=== PATIENT | female | born 1970 | race Caucasian/White ===

== ENCOUNTER 2016-12-11 17:30 | Inpatient (IN) | payer MEDICAID ==
[~2016-12-11] VITALS: Ht 162.6 cm; Wt 80.4 kg
[~2016-12-11 17:30] MED LIST: ARIP30TA PO; ESZO3TAB9 PO; IBUP800T PO; MAGN400T26 PO; OMEP-110 PO; ONDA4TAB7 PO; PROP60TA PO; SERT100T PO; TRAM50TA2 PO; VILA20TA PO
[2016-12-11] MEDS ORDERED: MECLIZINE CHEWABLE 25 MG TAB ONE ×2 (18:54→18:57)
[2016-12-11] MEDS ORDERED: MECLIZINE CHEWABLE 25 MG TAB PO ONE (19:00)
[2016-12-11] MEDS ORDERED: SODIUM CHLORIDE 0.9% 1,000ML IVBOLUS ONE (19:00)
[2016-12-11] MEDS ORDERED: HYDROmorphone 1 MG/ML, 1ML IM ONE (20:30)
[2016-12-11] MEDS ORDERED: HYDROmorphone 1 MG/ML, 1ML ONE (20:31)
[2016-12-11 20:48] LABS: HEMOGLOBIN 12.9 g/dL (11.7-16.4)
[2016-12-11 20:57] LABS: ASPARTATE AMINO TRANSFERASE 23 U/L (15-37); BLOOD UREA NITROGEN 9 mg/dL (7-18)
[2016-12-11 21:06] LABS: DAU SCREEN DISCLAIMER
[2016-12-12] MEDS ORDERED: OMEPRAZOLE 20 MG CAPSULE.DR PO SCH (09:00)
[2016-12-12] MEDS: VILAZODONE HYDROCHLORIDE 20 MG PO SCH (09:00)
[2016-12-12] MEDS ORDERED: POTASSIUM CHLORIDE 20 MEQ TAB.ER.PRT PO ONE (09:30)
[2016-12-12 11:18] LABS: BLOOD UREA NITROGEN 8 mg/dL (7-18)
[2016-12-12 11:23] VITALS: BP 109/72
[2016-12-12] MEDS: ENOXAPARIN 40 MG/0.4 ML SQ SCH (11:27)
[2016-12-12] MEDS ORDERED: MAGNESIUM SULFATE PMX 2GM/50ML 50 ML IV ONE (12:00)
[2016-12-12] MEDS: CEFTRIAXONE PMX 1GM/50ML 50 ML IV SCH (12:42)
[2016-12-12] MEDS: PROPRANOLOL 60 MG TABLET PO SCH ×3 (12:42→20:24)
[2016-12-12 12:54] VITALS: BP 150/98
[2016-12-12] MEDS: POTASSIUM CHLORIDE 20 MEQ TAB.ER.PRT PO SCH ×2 (13:40→20:22)
[2016-12-12] MEDS: HYDROmorphone 1 MG/ML, 1ML IV PRN ×2 (15:06→20:22)
[2016-12-12 19:04] VITALS: BP_SYST 148; BP_SYST 151; BP_DIAS 109; BP_DIAS 99
[2016-12-12] MEDS ORDERED: ZOLPIDEM 10MG TABLET PO SCH ×2 (22:53→22:54)
[2016-12-12] MEDS ORDERED: ZOLPIDEM 5MG TABLET PO SCH (22:55)
[2016-12-12] MEDS: ZOLPIDEM 5MG TABLET PO SCH (23:07)
[2016-12-13 00:29] VITALS: BP 147/95
[2016-12-13] MEDS: HYDROmorphone 1 MG/ML, 1ML IV PRN ×2 (00:58→05:04)
[2016-12-13 04:25] LABS: HEMOGLOBIN 12.7 g/dL (11.7-16.4)
[2016-12-13 04:44] LABS: BLOOD UREA NITROGEN 5 mg/dL (7-18)
[2016-12-13 07:21] VITALS: BP 146/97
[2016-12-13] MEDS: VILAZODONE HYDROCHLORIDE 20 MG PO SCH ×2 (09:00→09:12)
[2016-12-13] MEDS: PROPRANOLOL 60 MG TABLET PO SCH ×3 (09:11→21:39)
[2016-12-13] MEDS: MAGNESIUM OXIDE 400 MG TABLET PO SCH (09:11)
[2016-12-13] MEDS: POTASSIUM CHLORIDE 20 MEQ TAB.ER.PRT PO SCH (09:11)
[2016-12-13] MEDS: CEFTRIAXONE PMX 1GM/50ML 50 ML IV SCH (09:12)
[2016-12-13] MEDS: ENOXAPARIN 40 MG/0.4 ML SQ SCH (09:12)
[2016-12-13] MEDS: DIPHENHYDRAMINE 50 MG/ML, 1ML IVPush PRN ×3 (11:08→21:39)
[2016-12-13] MEDS: METOCLOPRAMIDE 5 MG/ML, 2ML IVPush PRN ×3 (11:08→21:39)
[2016-12-13 14:45] VITALS: BP 119/79
[2016-12-13 18:53] VITALS: BP 144/87
[2016-12-13] MEDS: ZOLPIDEM 5MG TABLET PO SCH (21:43)
[2016-12-14 01:13] VITALS: BP 142/91
[2016-12-14] MEDS: DIPHENHYDRAMINE 50 MG/ML, 1ML IVPush PRN ×3 (05:22→22:04)
[2016-12-14] MEDS: METOCLOPRAMIDE 5 MG/ML, 2ML IVPush PRN ×3 (05:23→22:04)
[2016-12-14 07:41] VITALS: BP 97/60
[2016-12-14 08:37] LABS: HEMOGLOBIN 13.6 g/dL (11.7-16.4)
[2016-12-14 08:42] LABS: BLOOD UREA NITROGEN 5 mg/dL (7-18)
[2016-12-14] MEDS: MAGNESIUM OXIDE 400 MG TABLET PO SCH (09:25)
[2016-12-14] MEDS: PROPRANOLOL 60 MG TABLET PO SCH ×3 (09:25→22:04)
[2016-12-14] MEDS: CEFTRIAXONE PMX 1GM/50ML 50 ML IV SCH (09:26)
[2016-12-14] MEDS: ENOXAPARIN 40 MG/0.4 ML SQ SCH (09:26)
[2016-12-14 13:49] VITALS: BP 125/87
[2016-12-14] MEDS: LACTOBACILLUS CHEW TABLET PO SCH ×2 (16:03→22:03)
[2016-12-14 19:08] VITALS: BP 122/82
[2016-12-14] MEDS: ZOLPIDEM 5MG TABLET PO SCH (22:04)
[2016-12-15 01:20] VITALS: BP 157/97
[2016-12-15] MEDS: METOCLOPRAMIDE 5 MG/ML, 2ML IVPush PRN ×3 (04:02→16:42)
[2016-12-15] MEDS: DIPHENHYDRAMINE 50 MG/ML, 1ML IVPush PRN ×3 (04:02→16:42)
[2016-12-15 05:03] LABS: BLOOD UREA NITROGEN 6 mg/dL (7-18)
[2016-12-15 07:11] VITALS: BP 130/85
[2016-12-15] MEDS: PROPRANOLOL 60 MG TABLET PO SCH ×3 (08:50→19:47)
[2016-12-15] MEDS: LACTOBACILLUS CHEW TABLET PO SCH ×3 (08:50→19:44)
[2016-12-15] MEDS: ENOXAPARIN 40 MG/0.4 ML SQ SCH (08:51)
[2016-12-15] MEDS: MAGNESIUM OXIDE 400 MG TABLET PO SCH (08:51)
[2016-12-15] MEDS: VILAZODONE HYDROCHLORIDE 20 MG PO SCH (09:00)
[2016-12-15] MEDS: CEFTRIAXONE PMX 1GM/50ML 50 ML IV SCH (09:16)
[2016-12-15 12:55] VITALS: BP 108/73
[2016-12-15 19:40] VITALS: BP 138/87
[2016-12-15] MEDS: ZOLPIDEM 5MG TABLET PO SCH (22:30)
[2016-12-15] MEDS: HYDROmorphone 1 MG/ML, 1ML IV PRN (22:30)
[2016-12-16] MEDS: HYDROmorphone 1 MG/ML, 1ML IV PRN (02:28)
[2016-12-16 04:24] VITALS: BP 149/92
[2016-12-16] MEDS: DIPHENHYDRAMINE 50 MG/ML, 1ML IVPush PRN (06:32)
[2016-12-16] MEDS: METOCLOPRAMIDE 5 MG/ML, 2ML IVPush PRN (06:33)
[2016-12-16 07:28] VITALS: BP 136/86
[2016-12-16] MEDS: VILAZODONE HYDROCHLORIDE 20 MG PO SCH (09:00)
[2016-12-16] MEDS: LACTOBACILLUS CHEW TABLET PO SCH (09:37)
[2016-12-16] MEDS: MAGNESIUM OXIDE 400 MG TABLET PO SCH (09:37)
[2016-12-16] MEDS: CEFTRIAXONE PMX 1GM/50ML 50 ML IV SCH (09:37)
[2016-12-16] MEDS: ENOXAPARIN 40 MG/0.4 ML SQ SCH (10:00)
[2016-12-16] MEDS: PROPRANOLOL 60 MG TABLET PO SCH (10:57)
[2016-12-16 14:10] VITALS: BP 122/77
[2016-12-16] MEDS ORDERED: MAGN400T26 PO (14:13)
[2016-12-16] MEDS ORDERED: CEFD300C2 PO (14:13)
[2016-12-16] MEDS ORDERED: ACID1TAB7 PO (14:13)
== END 2016-12-16 17:41 | DRG 690 ==
LOC: ED 18:42 → EDIP 23:17 → ICU 12-12 07:45
PROVIDERS: ADMIT Internal Medicine; ATTEND Internal Medicine
PROC: 0T9B70Z Drainage of Bladder with Drainage Device, Via Natural or Artificial Opening (ICD-10-PCS; principal; 2016-12-11)
DX: N39.0 Urinary tract infection, site not specified (principal); G91.9 Hydrocephalus, unspecified; R44.0 Auditory hallucinations; R27.8 Other lack of coordination; F32.9 Major depressive disorder, single episode, unspecified; H54.8 Legal blindness, as defined in USA; G43.909 Migraine, unspecified, not intractable, without status migrainosus; E87.6 Hypokalemia; G93.89 Other specified disorders of brain; M21.379 Foot drop, unspecified foot; R41.0 Disorientation, unspecified; Z90.49 Acquired absence of other specified parts of digestive tract; Z90.710 Acquired absence of both cervix and uterus; Z98.2 Presence of cerebrospinal fluid drainage device; Z87.891 Personal history of nicotine dependence; Z91.048 Other nonmedicinal substance allergy status; Z79.899 Other long term (current) drug therapy
CPT/HCPCS: 36415; 70450; 71010; 80048; 80053; 80307; 81001; 82962; 83735; 85025; 87086; 93005; 96372; J0696; J1170; J1650; J1200; J2765; J3475; J7030

== ENCOUNTER 2017-01-25 04:27 | Emergency (ER) | payer MEDICAID ==
[~2017-01-25] VITALS: Ht 162.6 cm; Wt 65.0 kg
[~2017-01-25 04:27] MED LIST changes: +ACID1TAB7 PO; +CEFD300C37 PO
[2017-01-25] MEDS ORDERED: MORPHINE SULFATE 4 MG/ML, 1ML IVPush PRN (05:00)
[2017-01-25] MEDS ORDERED: SODIUM CHLORIDE 0.9% 1,000ML IVBOLUS ONE (05:00)
[2017-01-25] MEDS ORDERED: ONDANSETRON 2MG/ML, 2ML IVPush ONE (05:00)
[2017-01-25 05:32] LABS: ASPARTATE AMINO TRANSFERASE 11 U/L (15-37); BLOOD UREA NITROGEN 14 mg/dL (7-18)
[2017-01-25] MEDS ORDERED: ONDANSETRON ODT 4 MG ONE (05:46)
[2017-01-25] MEDS ORDERED: HYDROcodone/APAP 5/325 TABLET ONE (05:46)
[2017-01-25] MEDS ORDERED: HYDROcodone/APAP 5/325 TABLET PO ONE (06:00)
[2017-01-25] MEDS ORDERED: ONDANSETRON ODT 4 MG PO ONE (06:00)
[2017-01-25 06:21] LABS: PATH.CAST-FLAG NOT PRESENT; SPERM-FLAG NOT PRESENT; SRC-FLAG NOT PRESENT; XTAL-FLAG NOT PRESENT; YLC-FLAG NOT PRESENT
[2017-01-25 07:16] VITALS: BP 110/67
== END 2017-01-25 08:24 | disposition home or self-care (01) ==
LOC: ED 04:31
DX: S62.366A Nondisplaced fracture of neck of fifth metacarpal bone, right hand, initial encounter for closed fracture (principal); R55 Syncope and collapse; R19.7 Diarrhea, unspecified; W01.0XXA Fall on same level from slipping, tripping and stumbling without subsequent striking against object, initial encounter; Y93.89 Activity, other specified; Y92.89 Other specified places as the place of occurrence of the external cause; Y99.8 Other external cause status; G43.909 Migraine, unspecified, not intractable, without status migrainosus; Z90.49 Acquired absence of other specified parts of digestive tract; Z90.710 Acquired absence of both cervix and uterus
CPT/HCPCS: 36415; 73130; 80053; 81001; 85025; 87086; 93005; 99285; Q0162

== ENCOUNTER 2017-02-08 14:48 | Emergency (ER) | payer MEDICAID ==
[~2017-02-08] VITALS: Ht 162.6 cm; Wt 65.9 kg
[2017-02-08] MEDS ORDERED: SODIUM CHLORIDE 0.9% 1,000ML IVBOLUS ONE ×2 (15:30→17:00)
[2017-02-08] MEDS ORDERED: SODIUM CHLORIDE FLUSH 10ML SYR IVF ONE ×2 (15:30→17:00)
[2017-02-08] MEDS ORDERED: PLEASE ENTER HEIGHT AND WEIGHT MC SCH (15:30)
[2017-02-08 15:35] LABS: BLOOD UREA NITROGEN 12 mg/dL (7-18)
[2017-02-08 15:50] LABS: IS PT STATUS REG ER OR PRE ER? YES
[2017-02-08 15:52] LABS: DIFF TOTAL CELLS COUNTED 100 CELL DIFF
[2017-02-08 15:56] LABS: VERIFY COUNTS? YES
[2017-02-08] MEDS ORDERED: DIPHENHYDRAMINE 50 MG/ML, 1ML ONE (16:45)
[2017-02-08] MEDS ORDERED: METOCLOPRAMIDE 5 MG/ML, 2ML ONE (16:45)
[2017-02-08] MEDS ORDERED: METOCLOPRAMIDE 5 MG/ML, 2ML IVPush ONE (17:00)
[2017-02-08] MEDS ORDERED: DIPHENHYDRAMINE 50 MG/ML, 1ML IVPush ONE (17:00)
[2017-02-08 17:35] VITALS: BP 133/94
== END 2017-02-08 18:46 | disposition home or self-care (01) ==
LOC: ED 15:53
DX: G43.009 Migraine without aura, not intractable, without status migrainosus (principal); E86.0 Dehydration; R55 Syncope and collapse; H54.8 Legal blindness, as defined in USA; Z87.891 Personal history of nicotine dependence
CPT/HCPCS: 36415; 71010; 80048; 82040; 84484; 85025; 93005; 96361; 96374; 96375; 99285; J1200; J2765; J7030

== ENCOUNTER 2017-03-06 15:23 | Emergency (ER) | payer MEDICAID ==
[~2017-03-06] VITALS: Ht 162.6 cm; Wt 68.0 kg
[2017-03-06] MEDS ORDERED: HYDROcodone/APAP 5/325 TABLET PO PRN (15:30)
[2017-03-06] MEDS ORDERED: HYDROcodone/APAP 5/325 TABLET ONE (15:56)
[2017-03-06 16:19] VITALS: BP 140/98
== END 2017-03-06 17:39 | disposition home or self-care (01) ==
LOC: ED 15:34
DX: S00.03XA Contusion of scalp, initial encounter (principal); S10.93XA Contusion of unspecified part of neck, initial encounter; E83.51 Hypocalcemia; Z90.49 Acquired absence of other specified parts of digestive tract; Z90.710 Acquired absence of both cervix and uterus; F17.200 Nicotine dependence, unspecified, uncomplicated; Y08.89XA Assault by other specified means, initial encounter; Y93.89 Activity, other specified; Y92.009 Unspecified place in unspecified non-institutional (private) residence as the place of occurrence of the external cause; Y99.9 Unspecified external cause status
CPT/HCPCS: 70450; 99284

== ENCOUNTER 2017-04-20 13:14 | Emergency (ER) | payer MEDICAID ==
[~2017-04-20] VITALS: Ht 162.6 cm; Wt 68.0 kg
[~2017-04-20 13:14] MED LIST changes: -ARIP30TA PO; +ARIP30TA4 PO
[2017-04-20] MEDS ORDERED: SODIUM CHLORIDE 0.9% 1,000ML IVBOLUS ONE (14:00)
[2017-04-20] MEDS ORDERED: METOCLOPRAMIDE 5 MG/ML, 2ML IVPush ONE (14:00)
[2017-04-20] MEDS ORDERED: DIPHENHYDRAMINE 50 MG/ML, 1ML IVPush ONE (14:00)
[2017-04-20] MEDS ORDERED: KETOROLAC 30 MG/1 ML IVPush ONE (14:00)
[2017-04-20] MEDS ORDERED: DIPHENHYDRAMINE 50 MG/ML, 1ML ONE ×2 (14:02→14:35)
[2017-04-20] MEDS ORDERED: KETOROLAC 30 MG/1 ML ONE ×2 (14:02→14:35)
[2017-04-20] MEDS ORDERED: METOCLOPRAMIDE 5 MG/ML, 2ML ONE (14:02)
[2017-04-20 14:42] VITALS: BP 152/78
[2017-04-20] MEDS ORDERED: HYDROmorphone 1 MG/ML, 1ML IVPush PRN (15:00)
[2017-04-20] MEDS ORDERED: HYDROmorphone 1 MG/ML, 1ML ONE (15:03)
== END 2017-04-20 16:03 | disposition home or self-care (01) ==
LOC: ED 15:04
DX: G43.909 Migraine, unspecified, not intractable, without status migrainosus (principal)
CPT/HCPCS: 96374; 96375; 99284; J1170; J1200; J1885; J2765; J7030

== ENCOUNTER 2017-05-07 19:10 | Emergency (ER) | payer MEDICAID ==
[~2017-05-07] VITALS: Ht 162.6 cm; Wt 70.9 kg
[~2017-05-07 19:10] MED LIST changes: +ESZO3TAB28 PO; -ESZO3TAB9 PO; +IBUP-1223 PO; -IBUP800T PO
[2017-05-07] MEDS ORDERED: DIPH,PERTUSS(ACELL),TET VAC/PF 0.5 ML IM-VACC ONE (20:00)
[2017-05-07] MEDS ORDERED: LIDOCAINE 1%, 20ML SQ ONE (20:00)
[2017-05-07] MEDS ORDERED: KETOROLAC 30 MG/1 ML IVPush ONE (20:30)
[2017-05-07] MEDS ORDERED: METOCLOPRAMIDE 5 MG/ML, 2ML IVPush ONE (20:30)
[2017-05-07] MEDS ORDERED: SODIUM CHLORIDE FLUSH 10ML SYR IVF ONE (20:30)
[2017-05-07] MEDS ORDERED: DIPHENHYDRAMINE 50 MG/ML, 1ML IVPush ONE (20:30)
[2017-05-07] MEDS ORDERED: SODIUM CHLORIDE 0.9% 1,000ML IVBOLUS ONE (20:30)
[2017-05-07] MEDS ORDERED: METOCLOPRAMIDE 5 MG/ML, 2ML ONE (20:39)
[2017-05-07] MEDS ORDERED: DIPHENHYDRAMINE 50 MG/ML, 1ML ONE (20:39)
[2017-05-07] MEDS ORDERED: KETOROLAC 30 MG/1 ML ONE (20:39)
[2017-05-07] MEDS ORDERED: HYDROmorphone 1 MG/ML, 1ML ONE (21:50)
[2017-05-07] MEDS ORDERED: HYDROmorphone 2 MG/ML, 1ML IVPush PRN (22:00)
[2017-05-07 22:04] LABS: PATH.CAST-FLAG NOT PRESENT; SPERM-FLAG NOT PRESENT; SRC-FLAG NOT PRESENT; XTAL-FLAG NOT PRESENT; YLC-FLAG NOT PRESENT
[2017-05-07] MEDS ORDERED: CEFTRIAXONE PMX 1GM/50ML 50 ML IV ONE (22:30)
[2017-05-07] MEDS ORDERED: CEFTRIAXONE PMX 1GM/50ML 50 ML ONE (22:34)
[2017-05-07 23:15] VITALS: BP 141/77
== END 2017-05-07 23:17 | disposition home or self-care (01) ==
LOC: ED 21:13
DX: G43.909 Migraine, unspecified, not intractable, without status migrainosus (principal); N30.90 Cystitis, unspecified without hematuria; N39.0 Urinary tract infection, site not specified; I10 Essential (primary) hypertension; F32.9 Major depressive disorder, single episode, unspecified; Z90.49 Acquired absence of other specified parts of digestive tract; Z90.710 Acquired absence of both cervix and uterus; Z98.2 Presence of cerebrospinal fluid drainage device
CPT/HCPCS: 81001; 87077; 87086; 87186; 96361; 96365; 96375; 99285; J0696; J1170; J1200; J1885; J2765; J7030

== ENCOUNTER 2017-05-23 19:49 | Emergency (ER) | payer MEDICAID ==
[~2017-05-23] VITALS: Ht 162.6 cm; Wt 68.0 kg
[2017-05-23] MEDS ORDERED: DIPHENHYDRAMINE 50 MG/ML, 1ML IVPush ONE (20:00)
[2017-05-23] MEDS ORDERED: SODIUM CHLORIDE 0.9% 1,000ML IVBOLUS ONE ×2 (20:00→21:30)
[2017-05-23] MEDS ORDERED: METOCLOPRAMIDE 5 MG/ML, 2ML IVPush ONE (20:00)
[2017-05-23] MEDS ORDERED: DIPHENHYDRAMINE 50 MG/ML, 1ML ONE (20:10)
[2017-05-23] MEDS ORDERED: METOCLOPRAMIDE 5 MG/ML, 2ML ONE (20:10)
[2017-05-23] MEDS ORDERED: KETOROLAC 30 MG/1 ML ONE (20:55)
[2017-05-23] MEDS ORDERED: HYDROmorphone 1 MG/ML, 1ML ONE (21:25)
[2017-05-23] MEDS ORDERED: HYDROmorphone 1 MG/ML, 1ML IVPush PRN (21:30)
[2017-05-23] MEDS ORDERED: LORazepam 2 MG/ML, 1ML ONE ×2 (22:13)
[2017-05-23] MEDS ORDERED: LORazepam 2 MG/ML, 1ML IVPush ONE (22:30)
[2017-05-23 22:31] VITALS: BP 128/62
== END 2017-05-23 22:46 | disposition home or self-care (01) ==
LOC: ED 21:08
DX: E86.0 Dehydration (principal); G43.019 Migraine without aura, intractable, without status migrainosus; I10 Essential (primary) hypertension
CPT/HCPCS: 96374; 96375; 99284; J1170; J1200; J2060; J2765; J7030

== ENCOUNTER 2017-05-24 21:44 | Emergency (ER) | payer MEDICAID ==
[~2017-05-24] VITALS: Ht 162.6 cm; Wt 70.9 kg
[2017-05-24] MEDS ORDERED: SODIUM CHLORIDE 0.9% 1,000ML IVBOLUS ONE (23:30)
[2017-05-24] MEDS ORDERED: METOCLOPRAMIDE 5 MG/ML, 2ML IVPush ONE (23:30)
[2017-05-24] MEDS ORDERED: KETOROLAC 30 MG/1 ML IVPush ONE (23:30)
[2017-05-24] MEDS ORDERED: DIPHENHYDRAMINE 50 MG/ML, 1ML IVPush ONE (23:30)
[2017-05-24] MEDS ORDERED: KETOROLAC 30 MG/1 ML ONE (23:45)
[2017-05-24] MEDS ORDERED: DIPHENHYDRAMINE 50 MG/ML, 1ML ONE (23:45)
[2017-05-24] MEDS ORDERED: METOCLOPRAMIDE 5 MG/ML, 2ML ONE (23:45)
[2017-05-25] MEDS ORDERED: LORazepam 2 MG/ML, 1ML ONE (00:43)
[2017-05-25] MEDS ORDERED: DEXAMETHASONE 4 MG/ML, 1ML ONE (00:43)
[2017-05-25] MEDS ORDERED: LORazepam 2 MG/ML, 1ML IVPush ONE ×2 (01:00→02:00)
[2017-05-25] MEDS ORDERED: DEXAMETHASONE 4 MG/ML, 1ML IVPush ONE (01:00)
[2017-05-25] MEDS ORDERED: SODIUM CHLORIDE 0.9% 1,000ML IVBOLUS ONE (02:00)
[2017-05-25] MEDS ORDERED: HYDROmorphone 1 MG/ML, 1ML IV ONE (02:30)
[2017-05-25] MEDS ORDERED: HYDROmorphone 1 MG/ML, 1ML ONE (02:31)
[2017-05-25] MEDS ORDERED: LABETALOL 5MG/ML, 20ML ONE ×2 (02:58→03:17)
[2017-05-25] MEDS ORDERED: LABETALOL 5MG/ML, 20ML IVPush ONE (03:00)
[2017-05-25 03:24] LABS: HEMATOCRIT 37.3 % (34.6-47.8); HEMOGLOBIN 12.1 g/dL (11.7-16.4); WHITE BLOOD COUNT 6.3 x10^3/uL (3.4-10)
[2017-05-25 03:34] LABS: BLOOD UREA NITROGEN 6 mg/dL (7-18)
[2017-05-25 04:48] VITALS: BP 152/87
== END 2017-05-25 04:48 | disposition home or self-care (01) ==
LOC: ED 22:30
DX: G43.009 Migraine without aura, not intractable, without status migrainosus (principal); R00.0 Tachycardia, unspecified; I10 Essential (primary) hypertension; E83.51 Hypocalcemia; Z90.49 Acquired absence of other specified parts of digestive tract; Z90.710 Acquired absence of both cervix and uterus
CPT/HCPCS: 36415; 70450; 80048; 85025; 93005; 96361; 96374; 96375; 96376; 99285; J1100; J1170; J1200; J1885; J2060; J2765; J7030

== ENCOUNTER 2017-07-31 09:42 | Emergency (ER) | payer MEDICAID ==
[~2017-07-31] VITALS: Ht 162.6 cm; Wt 73.0 kg
[2017-07-31] MEDS ORDERED: HYDROmorphone 2 MG/ML, 1ML ONE (10:23)
[2017-07-31] MEDS ORDERED: HYDROmorphone 1 MG/ML, 1ML IM ONE (10:30)
[2017-07-31 11:05] VITALS: BP 111/68
== END 2017-07-31 11:07 | disposition home or self-care (01) ==
LOC: ED 10:13
DX: G43.009 Migraine without aura, not intractable, without status migrainosus (principal); I10 Essential (primary) hypertension; Z90.49 Acquired absence of other specified parts of digestive tract; Z98.2 Presence of cerebrospinal fluid drainage device; Z90.710 Acquired absence of both cervix and uterus
CPT/HCPCS: 96372; 99283; J1170

== ENCOUNTER 2017-08-05 02:20 | Emergency (ER) | payer MEDICAID ==
[~2017-08-05] VITALS: Ht 160 cm; Wt 73.0 kg
[2017-08-05] MEDS ORDERED: LIDOCAINE 1%, 20ML SQ ONE (02:30)
[2017-08-05] MEDS ORDERED: LIDOCAINE 1%, 20ML ONE (02:34)
[2017-08-05] MEDS ORDERED: BACITRACIN ZINC OINT 500U/GM, 0.9 GM ONE (02:35)
[2017-08-05 03:04] VITALS: BP 148/72
== END 2017-08-05 03:16 | disposition home or self-care (01) ==
LOC: ED 03:10
DX: L03.312 Cellulitis of back [any part except buttock and flank] (principal); L02.212 Cutaneous abscess of back [any part, except buttock and flank]; I10 Essential (primary) hypertension; E86.0 Dehydration; G43.909 Migraine, unspecified, not intractable, without status migrainosus; Z90.49 Acquired absence of other specified parts of digestive tract
CPT/HCPCS: 10060; 99283

== ENCOUNTER 2017-08-22 19:55 | Emergency (ER) | payer MEDICAID ==
[~2017-08-22] VITALS: Ht 167.6 cm; Wt 75.0 kg
[2017-08-23 01:55] VITALS: BP 116/74
== END 2017-08-23 01:57 | disposition home or self-care (01) ==
LOC: ED 20:19
DX: F10.120 Alcohol abuse with intoxication, uncomplicated (principal); G43.909 Migraine, unspecified, not intractable, without status migrainosus; I10 Essential (primary) hypertension
CPT/HCPCS: 36415; 80307; 99283; G0479

== ENCOUNTER 2017-09-13 11:17 | Emergency (ER) | payer MEDICAID ==
[~2017-09-13] VITALS: Ht 162.6 cm; Wt 75.0 kg
[2017-09-13] MEDS ORDERED: SODIUM CHLORIDE 0.9% 1,000 ML IV ONE (11:26)
[2017-09-13] MEDS ORDERED: ONDANSETRON 2MG/ML, 2ML IVPush ONE (11:30)
[2017-09-13] MEDS ORDERED: SODIUM CHLORIDE FLUSH 10ML SYR IVF ONE (11:30)
[2017-09-13] MEDS ORDERED: ONDANSETRON 2MG/ML, 2ML ONE (11:58)
[2017-09-13] MEDS ORDERED: HYDROmorphone 2 MG/ML, 1ML ONE ×2 (11:58→12:26)
[2017-09-13] MEDS: HYDROmorphone 1 MG/ML, 1ML IVPush PRN ×2 (12:05→12:28)
[2017-09-13 13:33] VITALS: BP 142/89
== END 2017-09-13 13:51 | disposition home or self-care (01) ==
LOC: ED 11:57
DX: G44.229 Chronic tension-type headache, not intractable (principal); I10 Essential (primary) hypertension; G43.109 Migraine with aura, not intractable, without status migrainosus; G91.9 Hydrocephalus, unspecified; Z98.2 Presence of cerebrospinal fluid drainage device
CPT/HCPCS: 96374; 96375; 99284; J1170; J2405; J7030

== ENCOUNTER 2017-09-27 20:08 | Emergency (ER) | payer MEDICAID ==
[~2017-09-27] VITALS: Ht 162.6 cm; Wt 70.0 kg
[~2017-09-27 20:08] MED LIST changes: -SERT100T PO; +SERT20OR PO
[2017-09-27] MEDS ORDERED: METOCLOPRAMIDE 5 MG/ML, 2ML IVPush ONE (20:30)
[2017-09-27] MEDS ORDERED: KETOROLAC 30 MG/1 ML IVPush ONE (20:30)
[2017-09-27] MEDS ORDERED: DIPHENHYDRAMINE 50 MG/ML, 1ML IVPush ONE (20:30)
[2017-09-27] MEDS ORDERED: DEXAMETHASONE 4 MG/ML, 5ML IVPush ONE (20:30)
[2017-09-27] MEDS ORDERED: KETOROLAC 30 MG/1 ML ONE (20:38)
[2017-09-27] MEDS ORDERED: DIPHENHYDRAMINE 50 MG/ML, 1ML ONE (20:38)
[2017-09-27] MEDS ORDERED: DEXAMETHASONE 4 MG/ML, 5ML ONE (20:38)
[2017-09-27] MEDS ORDERED: METOCLOPRAMIDE 5 MG/ML, 2ML ONE (20:38)
[2017-09-27 22:19] VITALS: BP 138/84
== END 2017-09-27 22:21 | disposition home or self-care (01) ==
LOC: ED 20:45
DX: G43.009 Migraine without aura, not intractable, without status migrainosus (principal); G91.9 Hydrocephalus, unspecified; I10 Essential (primary) hypertension; Z90.49 Acquired absence of other specified parts of digestive tract
CPT/HCPCS: 96374; 96375; 99284; J1100; J1200; J1885; J2765

== ENCOUNTER 2017-10-13 15:08 | Emergency (ER) | payer MEDICAID ==
[~2017-10-13] VITALS: Ht 162.6 cm; Wt 72.7 kg
[~2017-10-13 15:08] MED LIST changes: +SERT100T PO; -SERT20OR PO
[2017-10-13] MEDS ORDERED: HYDROmorphone 2 MG/ML, 1ML ONE (15:53)
[2017-10-13] MEDS ORDERED: PROMETHAZINE 25 MG/ML, 1ML ONE (15:53)
[2017-10-13] MEDS: HYDROmorphone 1 MG/ML, 1ML IM PRN ×2 (16:00→16:30)
[2017-10-13] MEDS ORDERED: PROMETHAZINE 25 MG/ML, 1ML IM ONE (16:00)
[2017-10-13 17:44] VITALS: BP 112/80
== END 2017-10-13 17:46 | disposition home or self-care (01) ==
LOC: ED 16:23
DX: G43.909 Migraine, unspecified, not intractable, without status migrainosus (principal); I10 Essential (primary) hypertension; Z90.49 Acquired absence of other specified parts of digestive tract
CPT/HCPCS: 96372; 99284; J1170; J2550

== ENCOUNTER 2017-10-21 11:51 | Emergency (ER) | payer MEDICAID ==
[~2017-10-21] VITALS: Ht 165.1 cm; Wt 73.0 kg
[2017-10-21] MEDS ORDERED: METOCLOPRAMIDE 5 MG/ML, 2ML IVPush ONE (12:00)
[2017-10-21] MEDS ORDERED: SODIUM CHLORIDE FLUSH 10ML SYR IVF ONE (12:00)
[2017-10-21] MEDS ORDERED: KETOROLAC 30 MG/1 ML IVPush ONE (12:00)
[2017-10-21] MEDS ORDERED: DIPHENHYDRAMINE 50 MG/ML, 1ML IVPush ONE (12:00)
[2017-10-21] MEDS ORDERED: SODIUM CHLORIDE 0.9% 1,000ML IVBOLUS ONE (12:00)
[2017-10-21] MEDS ORDERED: DIPHENHYDRAMINE 50 MG/ML, 1ML ONE (12:28)
[2017-10-21] MEDS ORDERED: KETOROLAC 30 MG/1 ML ONE (12:28)
[2017-10-21] MEDS ORDERED: METOCLOPRAMIDE 5 MG/ML, 2ML ONE (12:28)
[2017-10-21 14:01] VITALS: BP 149/89
== END 2017-10-21 14:05 | disposition home or self-care (01) ==
LOC: ED 13:22
DX: G43.909 Migraine, unspecified, not intractable, without status migrainosus (principal); G91.9 Hydrocephalus, unspecified; Z91.09 Other allergy status, other than to drugs and biological substances; Z90.49 Acquired absence of other specified parts of digestive tract
CPT/HCPCS: 96361; 96374; 96375; 99284; J1200; J1885; J2765; J7030

== ENCOUNTER 2017-10-31 22:34 | Emergency (ER) | payer MEDICAID ==
[~2017-10-31] VITALS: Ht 162.6 cm; Wt 72.6 kg
[2017-10-31] MEDS ORDERED: HYDROmorphone 1 MG/ML, 1ML IM ONE (23:00)
[2017-10-31] MEDS ORDERED: HYDROmorphone 2 MG/ML, 1ML ONE (23:33)
[2017-10-31 23:37] VITALS: BP 132/95
== END 2017-11-01 01:39 ==
LOC: ED 23:20
DX: G43.C1 Periodic headache syndromes in child or adult, intractable (principal)
CPT/HCPCS: 70450; 96372; 99284; J1170

== ENCOUNTER 2017-11-17 14:38 | Emergency (ER) | payer MEDICAID ==
[~2017-11-17] VITALS: Ht 162.6 cm; Wt 71.8 kg
[2017-11-17] MEDS ORDERED: DIPHENHYDRAMINE 50 MG/ML, 1ML ONE (16:40)
[2017-11-17] MEDS ORDERED: ONDANSETRON 2MG/ML, 2ML ONE (16:40)
[2017-11-17] MEDS ORDERED: KETOROLAC 30 MG/1 ML ONE (16:40)
[2017-11-17] MEDS ORDERED: SODIUM CHLORIDE 0.9% 1,000ML IVBOLUS ONE (17:00)
[2017-11-17] MEDS ORDERED: KETOROLAC 30 MG/1 ML IVPush ONE (17:00)
[2017-11-17] MEDS ORDERED: DIPHENHYDRAMINE 50 MG/ML, 1ML IVPush ONE (17:00)
[2017-11-17] MEDS ORDERED: ONDANSETRON 2MG/ML, 2ML IVPush ONE (17:00)
[2017-11-17] MEDS ORDERED: SODIUM CHLORIDE FLUSH 10ML SYR IVF ONE (17:00)
[2017-11-17] MEDS ORDERED: HYDROcodone/APAP 5/325 TABLET ONE (17:44)
[2017-11-17] MEDS ORDERED: HYDROcodone/APAP 5/325 TABLET PO ONE (18:00)
[2017-11-17 18:33] VITALS: BP 141/83
== END 2017-11-17 18:36 | disposition home or self-care (01) ==
LOC: ED 16:36
DX: G43.909 Migraine, unspecified, not intractable, without status migrainosus (principal)
CPT/HCPCS: 96361; 96374; 96375; 99284; J1200; J1885; J2405; J7030

== ENCOUNTER 2017-11-18 11:58 | Emergency (ER) | payer MEDICAID ==
[~2017-11-18] VITALS: Ht 167.6 cm; Wt 75.0 kg
[2017-11-18] MEDS ORDERED: SODIUM CHLORIDE FLUSH 10ML SYR IVF ONE (13:00)
[2017-11-18 13:10] LABS: INTERNATIONAL NORMALIZED RATIO 0.97 (0.93-1.1); PROTHROMBIN TIME 10.1 Seconds (9.6-11.5)
[2017-11-18 13:11] LABS: BASOPHILS # (AUTO) 0.13 x10^3/uL (0-0.1); BASOPHILS % (AUTO) 2 % (0-1); EOSINOPHILS # (AUTO) 0.17 x10^3/uL (0-0.4); EOSINOPHILS % (AUTO) 2 % (1-7); LYMPHOCYTES # (AUTO) 1.79 x10^3/uL (1-3.4); LYMPHOCYTES % (AUTO) 24 % (22-44); MD NO; MEAN CORPUSCULAR HEMOGLOBIN 29.5 pg (27.0-34.8); MEAN CORPUSCULAR HGB CONC 33.2 g/dL (32.4-35.8); MEAN CORPUSCULAR VOLUME 88.7 fL (80-100); MONOCYTES # (AUTO) 0.45 x10^3/uL (0.2-0.8); MONOCYTES % (AUTO) 6 % (2-9); NEUTROPHILS # (AUTO) 4.94 x10^3/uL (1.8-6.8); NEUTROPHILS % (AUTO) 66 % (42-75); PLATELET COUNT 231 x10^3/uL (130-400); RED BLOOD COUNT 4.95 x10^6/uL (3.82-5.3); RED CELL DISTRIBUTION WIDTH 13.5 % (9.6-15.2)
[2017-11-18 13:14] LABS: ALBUMIN 3.6 g/dL (3.4-5.0); ANION GAP 5 mmol/L (5-15); CALCIUM 8.6 mg/dL (8.5-10.1); CHLORIDE 111 mmol/L (98-107)
[2017-11-18 13:17] LABS: ALANINE AMINOTRANSFERASE 22 U/L (12-78); ALKALINE PHOSPHATASE 135 U/L (45-117); BILIRUBIN,TOTAL 0.5 mg/dL (0.2-1.0); CREATININE 1.07 mg/dL (0.55-1.02); TOTAL PROTEIN 7.8 g/dL (6.4-8.2)
[2017-11-18] MEDS ORDERED: MORPHINE SULFATE 4 MG/ML, 1ML IVPush ONE (13:30)
[2017-11-18] MEDS ORDERED: ONDANSETRON 2MG/ML, 2ML IVPush ONE (13:30)
[2017-11-18] MEDS ORDERED: ONDANSETRON 2MG/ML, 2ML ONE (14:19)
[2017-11-18] MEDS ORDERED: MORPHINE SULFATE 4 MG/ML, 1ML ONE (14:19)
[2017-11-18] MEDS ORDERED: ONDANSETRON ODT 4 MG ONE (14:26)
[2017-11-18] MEDS ORDERED: ONDANSETRON ODT 4 MG PO ONE (14:30)
[2017-11-18 15:56] VITALS: BP 142/102
== END 2017-11-18 15:59 | disposition home or self-care (01) ==
LOC: ED 15:30
DX: G44.029 Chronic cluster headache, not intractable (principal); Z90.49 Acquired absence of other specified parts of digestive tract; Z90.710 Acquired absence of both cervix and uterus; G43.909 Migraine, unspecified, not intractable, without status migrainosus; F32.9 Major depressive disorder, single episode, unspecified; G91.9 Hydrocephalus, unspecified; Z86.73 Personal history of transient ischemic attack (TIA), and cerebral infarction without residual deficits; R79.1 Abnormal coagulation profile
CPT/HCPCS: 36415; 80053; 85025; 85610; 85730; 96374; 99284; Q0162

== ENCOUNTER 2017-11-21 19:05 | Emergency (ER) | payer MEDICAID ==
[~2017-11-21] VITALS: Ht 162.6 cm; Wt 73.0 kg
[2017-11-21] MEDS ORDERED: PROCHLORPERAZINE 5 MG/ML, 2ML ONE (19:57)
[2017-11-21] MEDS ORDERED: DIPHENHYDRAMINE 50 MG/ML, 1ML ONE (19:58)
[2017-11-21] MEDS ORDERED: KETOROLAC 30 MG/1 ML ONE (19:58)
[2017-11-21] MEDS ORDERED: PROCHLORPERAZINE 5 MG/ML, 2ML IVPush ONE (20:00)
[2017-11-21] MEDS ORDERED: DIPHENHYDRAMINE 50 MG/ML, 1ML IVPush ONE (20:00)
[2017-11-21] MEDS ORDERED: KETOROLAC 30 MG/1 ML IVPush ONE (20:00)
[2017-11-21] MEDS ORDERED: SODIUM CHLORIDE FLUSH 10ML SYR IVF ONE (20:00)
[2017-11-21] MEDS ORDERED: DEXAMETHASONE 4 MG/ML, 5ML ONE (21:17)
[2017-11-21] MEDS ORDERED: DEXAMETHASONE 4 MG/ML, 1ML IVPush ONE (21:30)
[2017-11-21] MEDS ORDERED: DEXAMETHASONE 4 MG/ML, 1ML IM ONE (21:30)
[2017-11-21 21:41] VITALS: BP 142/90
== END 2017-11-21 22:08 | disposition home or self-care (01) ==
LOC: ED 19:59
DX: G43.011 Migraine without aura, intractable, with status migrainosus (principal); F32.9 Major depressive disorder, single episode, unspecified
CPT/HCPCS: 70450; 96372; 96374; 96375; 99284; J0780; J1100; J1200; J1885

== ENCOUNTER 2018-02-02 23:32 | Emergency (ER) | payer MEDICAID ==
[~2018-02-02] VITALS: Ht 167.6 cm; Wt 62.0 kg
[~2018-02-02 23:32] MED LIST changes: +ESOM40CA PO; +IMIP25TA3 PO; +IMIP50TA3 PO
[2018-02-03] MEDS ORDERED: HYDROmorphone 2 MG/ML, 1ML IM ONE
[2018-02-03] MEDS ORDERED: ONDANSETRON ODT 4 MG PO ONE
[2018-02-03] MEDS ORDERED: ONDANSETRON ODT 4 MG ONE (00:04)
[2018-02-03] MEDS ORDERED: HYDROmorphone 2 MG/ML, 1ML ONE (00:05)
[2018-02-03 01:02] VITALS: BP 118/73
== END 2018-02-03 01:04 | disposition home or self-care (01) ==
LOC: ED 23:59
DX: G43.C0 Periodic headache syndromes in child or adult, not intractable (principal)
CPT/HCPCS: 96372; 99283; J1170; Q0162

== ENCOUNTER 2018-02-15 01:50 | Emergency (ER) | payer MEDICAID ==
[~2018-02-15] VITALS: Ht 162.6 cm; Wt 73.0 kg
[2018-02-15] MEDS ORDERED: DIPHENHYDRAMINE 50 MG/ML, 1ML ONE (02:56)
[2018-02-15] MEDS ORDERED: KETOROLAC 30 MG/1 ML ONE ×3 (02:56→04:41)
[2018-02-15] MEDS ORDERED: PROCHLORPERAZINE 5 MG/ML, 2ML ONE ×2 (02:56→04:31)
[2018-02-15] MEDS ORDERED: PROCHLORPERAZINE 5 MG/ML, 2ML IVPush ONE (03:00)
[2018-02-15] MEDS ORDERED: DIPHENHYDRAMINE 50 MG/ML, 1ML IVPush ONE (03:00)
[2018-02-15] MEDS ORDERED: KETOROLAC 30 MG/1 ML IVPush ONE (03:00)
[2018-02-15 03:46] LABS: BASOPHILS # (AUTO) 0.06 x10^3/uL (0-0.1); BASOPHILS % (AUTO) 1 % (0-1); EOSINOPHILS # (AUTO) 0.14 x10^3/uL (0-0.4); EOSINOPHILS % (AUTO) 2 % (1-7); LYMPHOCYTES # (AUTO) 1.53 x10^3/uL (1-3.4); LYMPHOCYTES % (AUTO) 24 % (22-44); MD NO; MEAN CORPUSCULAR HEMOGLOBIN 29.3 pg (27.0-34.8); MEAN CORPUSCULAR HGB CONC 34.1 g/dL (32.4-35.8); MEAN PLATELET VOLUME 8.9 fL (7.4-10.4); MONOCYTES # (AUTO) 0.64 x10^3/uL (0.2-0.8); MONOCYTES % (AUTO) 10 % (2-9); NEUTROPHILS # (AUTO) 4.11 x10^3/uL (1.8-6.8); NEUTROPHILS % (AUTO) 63 % (42-75); PLATELET COUNT 228 x10^3/uL (130-400); RED BLOOD COUNT 4.58 x10^6/uL (3.82-5.3); RED CELL DISTRIBUTION WIDTH 13.8 % (9.6-15.2)
[2018-02-15 03:57] LABS: ALBUMIN 3.3 g/dL (3.4-5.0); ANION GAP 8 mmol/L (5-15); CALCIUM 9.1 mg/dL (8.5-10.1); CHLORIDE 107 mmol/L (98-107); CREATININE 1.02 mg/dL (0.55-1.02)
[2018-02-15] MEDS ORDERED: PROCHLORPERAZINE 10MG TABLET PO STA (04:22)
[2018-02-15] MEDS ORDERED: KETOROLAC 30 MG/1 ML IM ONE (04:30)
[2018-02-15] MEDS ORDERED: DIPHENHYDRAMINE 25 MG CAPSULE PO ONE (04:30)
[2018-02-15] MEDS ORDERED: DIPHENHYDRAMINE 25 MG CAPSULE ONE (04:41)
[2018-02-15 05:17] VITALS: BP 133/87
== END 2018-02-15 05:24 | disposition home or self-care (01) ==
LOC: ED 02:11
DX: G43.909 Migraine, unspecified, not intractable, without status migrainosus (principal); E83.51 Hypocalcemia; G91.9 Hydrocephalus, unspecified
CPT/HCPCS: 36415; 70250; 70450; 71045; 72040; 74018; 80048; 82040; 85025; 93005; 96372; 99285; J1885; Q0163; Q0164

== ENCOUNTER 2018-02-22 14:40 | Emergency (ER) | payer MEDICAID ==
[~2018-02-22] VITALS: Ht 162.6 cm; Wt 72.0 kg
[2018-02-22] MEDS ORDERED: METOCLOPRAMIDE 5 MG/ML, 2ML IVPush ONE (15:30)
[2018-02-22] MEDS ORDERED: SODIUM CHLORIDE FLUSH 10ML SYR IVF ONE (15:30)
[2018-02-22] MEDS ORDERED: SODIUM CHLORIDE 0.9% 1,000ML IVBOLUS ONE (15:30)
[2018-02-22] MEDS ORDERED: DIPHENHYDRAMINE 50 MG/ML, 1ML IVPush ONE (15:30)
[2018-02-22] MEDS ORDERED: KETOROLAC 30 MG/1 ML IVPush ONE (15:30)
[2018-02-22] MEDS ORDERED: METOCLOPRAMIDE 5 MG/ML, 2ML ONE (15:36)
[2018-02-22] MEDS ORDERED: DIPHENHYDRAMINE 50 MG/ML, 1ML ONE (15:36)
[2018-02-22] MEDS ORDERED: KETOROLAC 30 MG/1 ML ONE (15:36)
[2018-02-22] MEDS ORDERED: HYDROmorphone 2 MG/ML, 1ML ONE (15:56)
[2018-02-22] MEDS ORDERED: HYDROmorphone 1 MG/ML, 1ML IV ONE (16:00)
[2018-02-22 16:32] VITALS: BP 138/79
== END 2018-02-22 16:34 | disposition home or self-care (01) ==
LOC: ED 15:05
DX: G43.909 Migraine, unspecified, not intractable, without status migrainosus (principal)
CPT/HCPCS: 96374; 96375; 99284; J1170; J1200; J1885; J2765; J7030

== ENCOUNTER 2018-03-12 07:40 | Emergency (ER) | payer MEDICAID ==
[~2018-03-12] VITALS: Ht 162.6 cm; Wt 74.0 kg
[2018-03-12] MEDS ORDERED: TOPI100T24 PO (07:56)
[2018-03-12] MEDS ORDERED: LORA0.5T PO (07:56)
[2018-03-12] MEDS ORDERED: IMIP25TA3 PO (07:56)
[2018-03-12] MEDS ORDERED: SODIUM CHLORIDE 0.9% 1,000ML IVBOLUS ONE (08:00)
[2018-03-12] MEDS ORDERED: METOCLOPRAMIDE 5 MG/ML, 2ML IVPush ONE (08:00)
[2018-03-12] MEDS ORDERED: SODIUM CHLORIDE FLUSH 10ML SYR IVF ONE (08:00)
[2018-03-12] MEDS ORDERED: DIPHENHYDRAMINE 50 MG/ML, 1ML IVPush ONE (08:00)
[2018-03-12] MEDS ORDERED: METOCLOPRAMIDE 5 MG/ML, 2ML ONE (08:04)
[2018-03-12] MEDS ORDERED: DIPHENHYDRAMINE 50 MG/ML, 1ML ONE (08:04)
[2018-03-12 08:30] LABS: BASOPHILS # (AUTO) 0.06 x10^3/uL (0-0.1); BASOPHILS % (AUTO) 1 % (0-1); EOSINOPHILS # (AUTO) 0.15 x10^3/uL (0-0.4); EOSINOPHILS % (AUTO) 2 % (1-7); LYMPHOCYTES # (AUTO) 1.21 x10^3/uL (1-3.4); LYMPHOCYTES % (AUTO) 14 % (22-44); MD NO; MEAN CORPUSCULAR HEMOGLOBIN 29.6 pg (27.0-34.8); MEAN CORPUSCULAR HGB CONC 33.3 g/dL (32.4-35.8); MEAN CORPUSCULAR VOLUME 88.9 fL (80-100); MEAN PLATELET VOLUME 8.9 fL (7.4-10.4); MONOCYTES # (AUTO) 0.61 x10^3/uL (0.2-0.8); MONOCYTES % (AUTO) 7 % (2-9); NEUTROPHILS # (AUTO) 6.54 x10^3/uL (1.8-6.8); NEUTROPHILS % (AUTO) 76 % (42-75); PLATELET COUNT 277 x10^3/uL (130-400); RED BLOOD COUNT 4.83 x10^6/uL (3.82-5.3); RED CELL DISTRIBUTION WIDTH 15.6 % (9.6-15.2)
[2018-03-12 08:38] LABS: ALBUMIN 3.5 g/dL (3.4-5.0); ANION GAP 7 mmol/L (5-15); CALCIUM 8.8 mg/dL (8.5-10.1); CHLORIDE 108 mmol/L (98-107); CREATININE 0.84 mg/dL (0.55-1.02)
[2018-03-12] MEDS ORDERED: KETOROLAC 30 MG/1 ML IVPush ONE (10:00)
[2018-03-12] MEDS ORDERED: KETOROLAC 30 MG/1 ML ONE (10:07)
[2018-03-12 10:52] VITALS: BP 151/103
== END 2018-03-12 11:40 | disposition home or self-care (01) ==
LOC: ED 07:46
DX: G43.909 Migraine, unspecified, not intractable, without status migrainosus (principal)
CPT/HCPCS: 36415; 70450; 80048; 82040; 85025; 96374; 96375; 99285; J1200; J1885; J2765; J7030

== ENCOUNTER 2018-03-13 04:53 | Emergency (ER) | payer MEDICAID ==
[~2018-03-13] VITALS: Ht 162.6 cm; Wt 73.0 kg
[~2018-03-13 04:53] MED LIST changes: +LORA0.5T PO; +TOPI100T24 PO
[2018-03-13] MEDS ORDERED: DIPHENHYDRAMINE 50 MG/ML, 1ML ONE (05:27)
[2018-03-13] MEDS ORDERED: METOCLOPRAMIDE 5 MG/ML, 2ML ONE (05:27)
[2018-03-13] MEDS ORDERED: METOCLOPRAMIDE 5 MG/ML, 2ML IVPush ONE (05:30)
[2018-03-13] MEDS ORDERED: SODIUM CHLORIDE FLUSH 10ML SYR IVF ONE (05:30)
[2018-03-13] MEDS ORDERED: DIPHENHYDRAMINE 50 MG/ML, 1ML IVPush ONE (05:30)
[2018-03-13] MEDS ORDERED: SODIUM CHLORIDE 0.9% 1,000ML IVBOLUS ONE (05:30)
[2018-03-13] MEDS ORDERED: ACETAMINOPHEN 500 MG TABLET ONE (06:43)
[2018-03-13] MEDS ORDERED: ACETAMINOPHEN 500 MG TABLET PO ONE (07:00)
[2018-03-13 08:03] VITALS: BP 139/89
== END 2018-03-13 08:31 | disposition home or self-care (01) ==
LOC: ED 05:11
DX: R51 Headache (principal); F32.9 Major depressive disorder, single episode, unspecified; Z90.49 Acquired absence of other specified parts of digestive tract
CPT/HCPCS: 96374; 96375; 99285; J1200; J2765; J7030

== ENCOUNTER 2018-03-22 09:18 | Emergency (ER) | payer MEDICAID ==
[~2018-03-22] VITALS: Ht 162.6 cm; Wt 72.2 kg
[2018-03-22 09:20] VITALS: BP 111/70
[2018-03-22] MEDS ORDERED: SODIUM CHLORIDE FLUSH 10ML SYR IVF ONE (10:00)
[2018-03-22] MEDS ORDERED: DIPHENHYDRAMINE 50 MG/ML, 1ML IVPush ONE (10:00)
[2018-03-22] MEDS ORDERED: SODIUM CHLORIDE 0.9% 1,000ML IVBOLUS ONE (10:00)
[2018-03-22] MEDS ORDERED: METOCLOPRAMIDE 5 MG/ML, 2ML IVPush ONE (10:00)
[2018-03-22] MEDS ORDERED: DEXAMETHASONE 4 MG/ML, 1ML IVPush ONE (10:00)
[2018-03-22] MEDS ORDERED: DIPHENHYDRAMINE 25 MG CAPSULE PO ONE (11:30)
[2018-03-22] MEDS ORDERED: METOCLOPRAMIDE 10MG TABLET PO ONE (11:30)
[2018-03-22] MEDS ORDERED: KETOROLAC 30 MG/1 ML IM ONE (11:30)
[2018-03-22] MEDS ORDERED: DEXAMETHASONE 4 MG TABLET PO ONE (11:30)
[2018-03-22] MEDS ORDERED: KETOROLAC 30 MG/1 ML ONE (11:33)
[2018-03-22] MEDS ORDERED: DEXAMETHASONE 4 MG TABLET ONE (11:33)
[2018-03-22] MEDS ORDERED: DIPHENHYDRAMINE 25 MG CAPSULE ONE (11:33)
[2018-03-22] MEDS ORDERED: METOCLOPRAMIDE 10MG TABLET ONE (11:33)
== END 2018-03-22 13:27 | disposition home or self-care (01) ==
LOC: ED 13:21
DX: G43.C1 Periodic headache syndromes in child or adult, intractable (principal); G43.909 Migraine, unspecified, not intractable, without status migrainosus; H54.7 Unspecified visual loss
CPT/HCPCS: 96372; 99284; J1885; Q0163

== ENCOUNTER 2020-06-28 16:30 | Emergency (ER) | payer MEDICARE, MEDICAID ==
[~2020-06-28] VITALS: Ht 177.8 cm; Wt 75.0 kg
[2020-06-28 18:31] LABS: BASOPHILS % (AUTO) 1 % (0-1); EOSINOPHILS % (AUTO) 2 % (1-7); LYMPHOCYTES % (AUTO) 10 % (22-44); MEAN CORPUSCULAR HEMOGLOBIN 28.8 pg (27.0-34.8); MEAN PLATELET VOLUME 9.1 fL (7.4-10.4); MONOCYTES % (AUTO) 6 % (2-9); NEUTROPHILS % (AUTO) 80 % (42-75); PLATELET COUNT 294 x10^3/uL (130-400); RED BLOOD COUNT 4.85 x10^6/uL (3.82-5.3); RED CELL DISTRIBUTION WIDTH 15.4 % (9.6-15.2)
[2020-06-28 18:36] LABS: ANION GAP 6 mmol/L (5-15); CHLORIDE 111 mmol/L (98-107); CREATININE 0.63 mg/dL (0.55-1.02)
[2020-06-28 19:14] LABS: MD SCAN
[2020-06-28] MEDS ORDERED: HALOPERIDOL 5 MG/ML IM ONE (19:30)
[2020-06-28] MEDS ORDERED: ONDANSETRON ODT 4 MG ONE (19:34)
[2020-06-28] MEDS ORDERED: HYDROmorphone 1 MG/ML, 1ML INJ ONE (19:35)
[2020-06-28] MEDS ORDERED: KETOROLAC 60 MG/2 ML ONE (19:35)
--- NOTE | 2020-06-28 19:44 | NUR ---
PATIENT C/O RIGHT SIDED MIGRAINE AND LEFT NECK PAIN WITH N/V. HX MIGRAINES IN THE PAST, HX HYDROCEPHALUS AND BLINDNESS. MONITORING IN PLACE, VSS, NADN, A&OX4. CALL LIGHT IN REACH WITH PHYSICAL INSTRUCTION AND TOUCH ON HOW TO USE/ WHERE BUTTONS ARE
--- NOTE | 2020-06-28 19:45 | NUR ---
PATIENT MEDICATED PER EMAR
[2020-06-28] MEDS ORDERED: KETOROLAC 30 MG/1 ML IM ONE (20:00)
[2020-06-28] MEDS ORDERED: HYDROmorphone 1 MG/ML, 1ML INJ IM ONE (20:00)
[2020-06-28] MEDS ORDERED: ONDANSETRON ODT 4 MG PO ONE (20:00)
[2020-06-28 20:45] VITALS: BP 118/78
--- NOTE | 2020-06-28 20:59 | NUR ---
Patient/Caregiver given discharge instructions and they have confirmed that they understand the instructions. Patient ambulatory with steady gait with physical guidance from this RN. Patient to be transported via taxi
== END 2020-06-28 21:01 | disposition home or self-care (01) ==
LOC: ED 17:15
DX: G43.C0 Periodic headache syndromes in child or adult, not intractable (principal); M54.2 Cervicalgia; R11.2 Nausea with vomiting, unspecified; F17.200 Nicotine dependence, unspecified, uncomplicated; Z90.49 Acquired absence of other specified parts of digestive tract; Z85.3 Personal history of malignant neoplasm of breast; Z90.89 Acquired absence of other organs; Z90.710 Acquired absence of both cervix and uterus
CPT/HCPCS: 36415; 80048; 85025; 96372; 99284; J1170; J1885; Q0162